=== PATIENT | female | born 1970 | race Caucasian/White ===

== ENCOUNTER 2018-02-04 10:47 | Emergency (ER) | payer BC ==
--- NOTE | 2018-02-04 11:04 | EDM.PDOC ---
ED HPI GENERAL MEDICAL PROBLEM - General Chief Complaint: ENT Problem Stated Complaint: SHARP PAIN IN NECK WHEN SWALLOWING Time Seen by Provider: 02/04/18 11:00 Source of Information: Reports: Patient History Limitations: Reports: No Limitations - History of Present Illness INITIAL COMMENTS - FREE TEXT/NARRATIVE: 47-year-old female presents for evaluation and treatment of a cough and a sharp discomfort in her throat when swallowing. Patient reports that the cough and has been going on for last 2 weeks. She denies that she first experienced a sharp pain when she swallowed about 2 weeks ago. Lasted about 20 or 30 seconds before it subsided on its own. She being concerned when she experienced the same sensation last night and twice this morning. Reports when she is swallowing her secretions this does not occur only when she is drinking fluids. She states today she experience some left-sided ear pain. She feels that the cough is getting better. No fevers, sore throat, nausea, vomiting, dysphagia, odynophagia, weight loss or lymphadenopathy. Patient does not have a primary care provider, she just moved to the area. Throat Pain Score (Numeric/FACES): 10 - Related Data Allergies Allergy/AdvReac Type Severity Reaction Status Date / Time Sulfa (Sulfonamide Allergy Other Verified 02/04/18 10:56 Antibiotics) Home Meds: Home Meds Azithromycin [IJP: Azithromycin] 250 mg PO DAILY #6 tab 02/04/18 [Rx] Sertraline [Zoloft] 25 mg PO DAILY 02/04/18 [History] Past Medical History Psychiatric History: Reports: Anxiety Hematologic History: Reports: Other (See Below) Other Hematologic History: Factor 5 Social & Family History - Family History Family Medical History: Noncontributory - Tobacco Use Smoking Status *Q: Never Smoker - Caffeine Use Caffeine Use: Reports: Soda - Recreational Drug Use Recreational Drug Use: No ED ROS ENT - Review of Systems Review Of Systems: See Below Constitutional: Denies: Fever, Weight Loss HEENT: Reports: Ear Pain, Other (pain to the left lateral neck , throat to ear, with swallowing). Denies: Throat Pain Respiratory: Reports: Cough GI/Abdominal: Reports: Other (denies any dysphagia, denies any odynophagia). Denies: Difficulty Swallowing, Nausea, Vomiting ED EXAM, ENT - Physical Exam Exam: See Below Exam Limited By: No Limitations General Appearance: Alert, WD/WN, No Apparent Distress, Anxious Eye Exam: Bilateral Eye: Normal Inspection Ears: Normal External Exam, Normal Canal, Hearing Grossly Normal, Normal TMs Nose: Normal Inspection Mouth/Throat: Normal Inspection, Normal Gums, Normal Lips, Tonsillar Erythema ( left). No: Tonsillar Exudates Neck: Normal Inspection. No: Lymphadenopathy (L), Lymphadenopathy (R) Respiratory/Chest: No Respiratory Distress, Lungs Clear, Normal Breath Sounds Cardiovascular: Normal Peripheral Pulses, Regular Rate, Rhythm, No Murmur Neurological: Alert, Oriented, Normal Cognition Psychiatric: Normal Affect, Normal Mood Skin: Warm, Dry, Normal Color Course - Vital Signs Last Recorded V/S: Last Vital Signs Temp 36.6 C 02/04/18 10:52 Pulse 78 02/04/18 10:52 Resp 18 02/04/18 10:52 BP 140/78 02/04/18 10:52 Pulse Ox 97 02/04/18 10:52 - Orders/Labs/Meds Orders: Active Orders 24 hr Category Date Time Status Chest 2V [CR] Stat Exams 02/04/18 11:15 Ordered CULTURE STREP A CONFIRMATION [RM] Stat Lab 02/04/18 11:18 Results STREP SCRN A RAPID W CULT CONF [RM] Stat Lab 02/04/18 11:15 Ordered - Radiology Interpretation Free Text/Narrative:: Chest: Two views of the chest were obtained. Comparison: No prior chest x-ray. Heart size and mediastinum are normal. Lungs are clear. Bony structures are unremarkable. Impression: 1. Nothing acute is seen on two-view chest x-ray. - Re-Assessments/Exams Free Text/Narrative Re-Assessment/Exam: 02/04/18 12:00 rapid strep returned negative chest xray shows no acute intrathoracic process discharge instructions as documented Departure - Departure Time of Disposition: 12:01 Disposition: Home, Self-Care 01 Condition: Fair Clinical Impression: Pharyngitis, Eustachian tube dysfunction - Discharge Information Prescriptions: Azithromycin [IJP: Azithromycin] 250 mg PO DAILY #6 tab Instructions: Eustachian Tube Dysfunction, Pharyngitis, [id number] Referrals: PCP,None [Primary Care Provider] - Forms: ED Department Discharge Additional Instructions: Take the azithromycin prescribed. 2 tabs on day 1 followed by 1 days 2 through 5 for 5 days of antibiotic totals. This antibiotic does stay in your system for 10 days. Recommend using [id number] medication such as Flonase or Nasonex for additional symptom relief. He may also use Tylenol or Motrin as needed for pain relief. Follow up with family med if your symptoms do no improve in 10 to 14. Recommend Nunu Flood or Dr. Hogan at the [facility] if not better, call to schedule with one of them. Please return to the ER should your symptoms change or worsen. - My Orders Last 24 Hours: My Active Orders 02/04/18 11:15 Chest 2V [CR] Stat STREP SCRN A RAPID W CULT CONF [RM] Stat 02/04/18 11:18 CULTURE STREP A CONFIRMATION [RM] Stat - Assessment/Plan Last 24 Hours: My Active Orders 02/04/18 11:15 Chest 2V [CR] Stat STREP SCRN A RAPID W CULT CONF [RM] Stat 02/04/18 11:18 CULTURE STREP A CONFIRMATION [RM] Stat
--- NOTE | 2018-02-04 12:46 | CR ---
Chest: Two views of the chest were obtained. Comparison: No prior chest x-ray. Heart size and mediastinum are normal. Lungs are clear. Bony structures are unremarkable. Impression: 1. Nothing acute is seen on two-view chest x-ray. Diagnostic code #1
== END 2018-02-04 12:15 | disposition home or self-care (01) ==
LOC: JD.ED 10:47
DX: J02.9 Acute pharyngitis, unspecified (principal); H69.90 Unspecified Eustachian tube disorder, unspecified ear; F41.9 Anxiety disorder, unspecified; Z88.2 Allergy status to sulfonamides; Z79.899 Other long term (current) drug therapy
CPT/HCPCS: 71046; 71046-26; 87081; 87430; 99283

== ENCOUNTER 2018-02-10 09:06 | Emergency (ER) | payer BC ==
--- NOTE | 2018-02-10 09:46 | EDM.PDOC ---
ED HPI GENERAL MEDICAL PROBLEM - General Chief Complaint: ENT Problem Stated Complaint: SHARP PAINS IN THROAT WHEN SWALLOWING Time Seen by Provider: 02/10/18 09:21 Source of Information: Reports: Patient, Family () History Limitations: Reports: No Limitations - History of Present Illness INITIAL COMMENTS - FREE TEXT/NARRATIVE: Medical records indicate that the patient was seen in this ED on 02/04/2018 for complaint of cough and sharp discomfort in her throat with swallowing. Both a rapid strep test and chest x-ray were negative. The patient was prescribed azithromycin, which she states she took as prescribed. The patient now returns because of no improvement. She states that the pain is sharp, felt in the left side of her throat when she swallows, sometimes. Initially it was only about once a day, but today she has experienced it 7 times. No recent fever. The cough that the patient had previously has since resolved. The patient states that there is no chance that she could have swallowed a fish bone. Final culture results from the rapid strep test obtained 02/04/2018 grew beta- hemolytic strep, not A, B, C, D, F, or G. The patient does not have a PCP. 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 Throat Pain Score (Numeric/FACES): 10 - Related Data Allergies Allergy/AdvReac Type Severity Reaction Status Date / Time Sulfa (Sulfonamide Allergy Other Verified 02/10/18 09:20 Antibiotics) Home Meds: Home Meds Azithromycin [IJP: Azithromycin] 250 mg PO DAILY #6 tab 02/04/18 [Rx] Sertraline [Zoloft] 25 mg PO DAILY 02/04/18 [History] Past Medical History Cardiovascular History: Reports: Blood Clots/VTE/DVT (LLE) Psychiatric History: Reports: Anxiety Hematologic History: Reports: Other (See Below) (Factor 5 Leiden mutation) - Past Surgical History HEENT Surgical History: Reports: Oral Surgery ([place] teeth extraction) Social & Family History - Family History Family Medical History: Noncontributory - Tobacco Use Smoking Status *Q: Never Smoker - Caffeine Use Caffeine Use: Reports: Coffee - Alcohol Use Alcohol Use History: Yes Alcohol Use Frequency: Socially - Recreational Drug Use Recreational Drug Use: No - Living Situation & Occupation Living situation: Reports: , with Spouse 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 ED EXAM, ENT - Physical Exam Exam: See Below Exam Limited By: No Limitations General Appearance: Alert, WD/WN, No Apparent Distress Eye Exam: Bilateral Eye: Normal Inspection Ears: Normal External Exam, Normal Canal, Hearing Grossly Normal, Normal TMs Nose: Normal Inspection, Normal Mucousa, No Blood Mouth/Throat: Normal Inspection, Normal Gums, Normal Lips, Normal Oropharynx, Normal Teeth. No: Pharyngeal Erythema, Throat Swelling, Tonsillar Swelling Head: Atraumatic, Normocephalic Neck: Normal Inspection, Supple, Non-Tender, Full Range of Motion. No: Lymphadenopathy (L), Lymphadenopathy (R) Course - Vital Signs Last Recorded V/S: Last Vital Signs Temp 36.6 C 02/10/18 09:11 Pulse 57 L 02/10/18 09:11 Resp 16 02/10/18 09:11 BP 98/73 02/10/18 09:11 Pulse Ox 100 02/10/18 09:11 - Re-Assessments/Exams Free Text/Narrative Re-Assessment/Exam: 02/10/18 09:41 The patient reports a nearly 2 week history of intermittent pain to the left side of her throat when she swallows,, with increasing frequency. As above, medical records indicate that she was seen in this ED on 02/04/2018 where a rapid strep test was negative, but the throat culture return positive for beta hemolytic strep, not [place] groups A, B, C, F, or G. These bacteria are normal oral pharyngeal bacteria, and no treatment is necessary, nevertheless, the patient was treated with azithromycin, with no relief. On physical examination today, I find no abnormalities whatsoever - no erythema or swelling. Both ears look completely normal. There is no history of fever, and the patient reports no possible ingestion of a fish bone. The patient's pharyngitis may be viral in etiology, or perhaps something more elusive. I don't have anything for the patient today other than a recommendation for Chloraseptic spray and warm salt water gargles, but I will refer her to ENT for further evaluation. 02/10/18 11:[address] Adam, Infectious Disease specialist at [facility] , at 11:05. He believes that the beta-hemolytic strep, not [place] group classified, is a normal pharyngeal yadiel, and does not require antibiotic treatment. He recommended salt water gargles for symptomatic relief. Departure - Departure Time of Disposition: 09:43 Disposition: Home, Self-Care 01 Condition: Good Clinical Impression: Pharyngitis - Discharge Information Referrals: PCP,None [Primary Care Provider] - Dioni Crisostomo MD [Ordering Only Provider] - Forms: ED Department Discharge Additional Instructions: You were seen in the emergency room for continued intermittent left-sided sore throat when you swallow. On examination, no abnormalities, such as redness or swelling of your throat, was seen. We recommend that you treat your sore throat with Chloraseptic spray and warm salt water gargles. Follow-up with the ENT Dr. Crisostomo at the next available appointment. If any other problems, please do not hesitate to return to the ER.
== END 2018-02-10 11:21 | disposition home or self-care (01) ==
LOC: JD.ED 09:06
DX: J02.9 Acute pharyngitis, unspecified (principal); Z88.2 Allergy status to sulfonamides; F41.9 Anxiety disorder, unspecified; Z98.890 Other specified postprocedural states
CPT/HCPCS: 99282